=== PATIENT | female | born 1990 | race Caucasian/White ===

== ENCOUNTER 2016-07-31 15:13 | Emergency (ER) | payer OTHER ==
[2016-07-31 17:30] LABS: HEMOGLOBIN 16.2 gm/dl (12.3-15.3); RED BLOOD COUNT 5.2 M/UL (4.00-5.10); WHITE BLOOD COUNT 11.8 K/UL (4.5-11.0)
[2016-07-31 17:53] LABS: BUN/CREATININE RATIO 23 (0-10)
== END 2016-07-31 19:30 | disposition home or self-care (01) ==
LOC: ER1 15:13
PROVIDERS: Physician Assistant Medical
DX: K59.00 Constipation, unspecified (principal); R10.84 Generalized abdominal pain; N20.0 Calculus of kidney; F17.210 Nicotine dependence, cigarettes, uncomplicated; F41.9 Anxiety disorder, unspecified; Z79.899 Other long term (current) drug therapy
CPT/HCPCS: 36415; 80053; 81001; 82150; 83605; 83690; 84703; 85025; 86140; 96361; 96374; 96375; 99284; J2270; J2405; J7030

== ENCOUNTER 2020-08-23 07:53 | Emergency (ER) | payer BC, OTHER ==
[2020-08-23 09:03] LABS: HEMOGLOBIN 13.8 gm/dl (12.3-15.3); RED BLOOD COUNT 4.3 M/UL (4.00-5.10); WHITE BLOOD COUNT 8.5 K/UL (4.5-11.0)
[2020-08-23 09:22] LABS: BUN/CREATININE RATIO 19 (0-10)
[2020-08-23] MEDS ORDERED: FLOMAX 0.4 MG0.4 MG PO (10:18)
[2020-08-23] MEDS ORDERED: ENDOCET 5-3251 EACH PO (10:22)
== END 2020-08-23 10:35 | disposition home or self-care (01) ==
LOC: ER1 07:53
PROVIDERS: Physician Assistant
DX: N13.30 Unspecified hydronephrosis (principal); N20.1 Calculus of ureter; Z87.442 Personal history of urinary calculi
CPT/HCPCS: 80053; 81001; 83690; 85025; 87086; 96374; 96375; 99284; J1885; J2405; J7030